=== PATIENT | female | born 1960 | race Caucasian/White ===

== ENCOUNTER → 2016-10-13 | Outpatient (CLI) | payer OTHER | LOC: RAD 09:45 | DX: Z12.31 Encounter for screening mammogram for malignant neoplasm of breast (principal) ==

== ENCOUNTER → 2016-10-18 | Outpatient (CLI) | payer OTHER | LOC: ULTRA 08:24 | DX: N63 Unspecified lump in breast (principal) ==

== ENCOUNTER → 2017-05-09 | Outpatient (CLI) | payer OTHER | LOC: RAD 09:28 | DX: R92.8 Other abnormal and inconclusive findings on diagnostic imaging of breast (principal) ==

== ENCOUNTER → 2017-12-06 | Outpatient (CLI) | payer OTHER | LOC: RAD 01:40 | DX: Z12.31 Encounter for screening mammogram for malignant neoplasm of breast (principal) ==

== ENCOUNTER → 2017-12-17 | Outpatient (CLI) | payer OTHER | LOC: ULTRA 13:05 | DX: N63.22 Unspecified lump in the left breast, upper inner quadrant (principal) ==

== ENCOUNTER → 2018-10-01 | Outpatient (CLI) | payer BC | LOC: RAD 09-27 00:26 | DX: N63.20 Unspecified lump in the left breast, unspecified quadrant (principal) ==

== ENCOUNTER → 2020-12-28 | Outpatient (CLI) | payer BC | LOC: BC 09:57 | PROVIDERS: ATTEND Neuromusculoskeletal Medicine & OMM | DX: Z12.31 Encounter for screening mammogram for malignant neoplasm of breast (principal) ==